=== PATIENT | female | born 1985 | race Two or more races ===

== ENCOUNTER 2024-05-04 16:13 | Outpatient (AMB) | payer BC, SELFPAY ==
[2024-05-04 16:23] VITALS: BP 122/83; PULSE 94; RESP 17; TEMP 36.4; O2SAT 97; BMI 43.9
--- NOTE | 2024-05-04 16:23 | PD.RESCLINIC ---
Vital Signs 05/04/24 16:23 Height 1.57 m Height Method Stated Weight 108.976 kg Weight Measurement Method Standing Scale BMI 43.9 BP 122/83 Blood Pressure Source Automatic Cuff Blood Pressure Location Left Upper Arm Position Sitting Respiration 17 Pulse 94 Pulse Source Monitor Temp 97.6 F Temp Source Temporal Artery Scan Pulse Oximetry (%) 97 Oxygen Delivery Method Room Air Allergies/Meds Allergies & Medications Allergies No Known Allergies Allergy (Verified 05/04/24 16:24) Medication Reconciliation No Known Home Medications 05/04/24 [History Confirmed 05/04/24] MA Intake Visit Data Collection New Patient or Established: Established Patient (seen at [facility] within 3 years) Seen by Clinical Staff ONLY (RN/MA): No Pain Present Currently: No Pain Scale Used: Khoury-Koo/Numerical Customer Service Professional Required: No PCP or OBGYN visit in last 3 months: No Hx Now: No Do You Feel Safe at Home: Yes Authorities Contacted: N/A Smoking Status Smoking Status: Never smoker Are you interested in quitting?: No Would you like additional Smoking Cessation Counseling?: No Immunization / Flu Flu Vaccine in the Last 12 Months: No Flu Vaccine Exclusion Criteria: No Exclusion Criteria Past Medical History Social History SMOKING STATUS: Smoking status: Never smoker Patient Portal Questionaires Social History Tobacco History Smoking Status: Never smoker Domestic Abuse History Do You Feel Safe at Home: Yes Review of Systems Report any current symptoms Only answer those that you have currently: Past Medical History Past Medical History Have you ever been diagnosed with any of the following: History of Present Illness HPI Narrative This is 39 yo F that presented to the clinic for weight management. Patient is a mother of 3. No significant past medical history. Patient had gestational diabetes in one of the pregnancies. Patient has tried diet and exercise without improvement in her weight loss goals. Denies any chest pain, SOB, palpitations, N/V/D. Objective/Exam Narrative Physical exam: Constitutional: AOx3, able to speak full sentences HEENT: NC/AT, PERRLA, oral mucosa moist, neck supple CVS: RRR, S1-S2 present, no murmurs RESP: CTAB GI: non distended, non tender to palpation, NBS MSK: full ROM, no peripheral edema, peripheral pulses present Skin: warm and dry, no rashes Neuro: drapery hanger II-XII grossly intact. Sensation grossly intact. Assessment & Plan Diagnosis / Problem List (1) Obesity: Status: Acute Qualifiers: Obesity type: unspecified obesity type Obesity classification: unspecified obesity classification Serious obesity comorbidity presence: unspecified whether serious comorbidity present Qualified Code(s): E66.9 - Obesity, unspecified Assessment & Plan: Patient has had difficulty losing weight with diet and exercise. Plan: -Labs -Make a exercise, diet plan with patient -we will evaluate for GLP-1a after labs (2) Morbid obesity with BMI of 40.0-44.9, adult: Status: Acute Plan: as above Office Procedures [facility] Level of Care Nursing/Assessment Patient Status: Established Patient Nursing Assessment/Reassessment: Medication Reconciliation, Update PMH in EMR and Vital Signs Coordination of Care: Complex Care and Chronic Disease 1-5, Consent,records obtained, informed consent, Education Simp Pt/Fam, Lab and Imaging orders and Staff clarify orders Established Patient Charge Established Patient Point Assignment: 100 Established Patient Point Charge: Level 3 (80-115)
== END 2024-05-04 16:39 | disposition home or self-care (01) ==
PROVIDERS: PCP Student in an Organized Health Care Education/Training Program; Referring Provider Student in an Organized Health Care Education/Training Program; Supervising Provider Internal Medicine; Visit Provider Student in an Organized Health Care Education/Training Program
DX: E66.01 Morbid (severe) obesity due to excess calories (principal); Z68.41 Body mass index [BMI] 40.0-44.9, adult
CPT/HCPCS: 99213; G0463

== ENCOUNTER → 2024-05-11 | Outpatient (CLI) | payer BC, SELFPAY ==
[2024-05-11 09:35] LABS: Basophils % (Auto) 0 % (0-2.5); Eosinophils # (Auto) 0.1 Thou/mm3 (0.0-0.5); Eosinophils % (Auto) 1 % (0-10); Hematocrit 40.4 % (36.0-46.0); Hemoglobin 13.9 g/dL (12.0-16.0); Immature Granulocytes % (Auto) 0 % (0-0); Immature Granulocytes Auto 0.02 Thou/mm3 (0.00-0.00); Lymphocytes # (Auto) 2.5 Thou/mm3 (1.0-4.8); Lymphocytes % (Auto) 30 % (10-50); Mean Corpuscular HGB Conc 34.4 g/dl (31.0-37.0); Mean Corpuscular Hemoglobin 29.7 pg (25.0-35.0); Mean Corpuscular Volume 86 fL (80-100); Monocytes # (Auto) 0.4 Thou/mm3 (0.0-0.8); Monocytes % (Auto) 5 % (0-12); Neutrophils # (Auto) 5.2 Thou/mm3 (1.8-7.7); Neutrophils % (Auto) 63 % (37-80); Nucleated Red Blood Cell % 0 /100 WBC (0); Platelet Count 260 Thou/mm3 (140-440); RDW Standard Deviation 39.8 fL (36.4-46.3); Red Blood Count 4.68 Miln/mm3 (4.00-5.20); White Blood Count 8.3 Thou/mm3 (3.6-11.0)
[2024-05-11 09:42] LABS: Glucose Estimated Average 103 mg/dL (80-131); Hemoglobin A1C 5.2 % Hgb (4.8-6.0)
[2024-05-11 09:48] LABS: Vitamin D 25 Hydroxy Total 12.3 ng/mL (7.3-40.2)
[2024-05-11 09:53] LABS: Alanine Aminotransferase 58 U/L (10-49); Albumin, Serum 4.4 gm/dL (3.5-5.0); Albumin/Globulin Ratio 1.7 (1.2-2.2); Alkaline Phosphatase 60 U/L (46-116); Anion Gap 9 (7-16); Aspartate Amino Transferase 48 U/L (0-34); BUN/Creatinine Ratio 16 Ratio (12-20); Bilirubin,Total 0.5 mg/dL (0.3-1.2); Blood Urea Nitrogen 11 mg/dL (9-23); Calcium 9.3 mg/dL (8.3-10.6); Calcium (Corrected) 9.3 mg/dL (8.5-10.1); Carbon Dioxide 27.2 mMol/L (20.0-31.0); Cardiac Risk Estimate 3.9 RATIO (3.7-5.6); Chloride 101 mMol/L (98-107); Cholesterol 187 mg/dL (132-200); Creatinine (Component) 0.7 mg/dL (0.6-1.3); Free T4 (Free Thyroxine) 1.16 ng/dL (0.89-1.76); Globulin 2.6 gm/dL (2.3-3.5); Glucose 84 mg/dL (74-106); HDL Cholesterol 48 mg/dL (40-60); LDL Cholesterol,Calculated 110 mg/dL (0-130); Osmolality,Calculated 272 (275-295); Potassium 4.4 mMol/L (3.4-5.1); Sodium 137 mMol/L (136-145); Thyroid Stimulating Hormone 0.94 uIU/mL (0.55-4.78); Triglycerides 145 mg/dL (30-150); eGFR > 60 See Note
== END | disposition home or self-care (01) ==
PROVIDERS: PCP Student in an Organized Health Care Education/Training Program; Referring Provider Student in an Organized Health Care Education/Training Program; Visit Provider Student in an Organized Health Care Education/Training Program
DX: Z00.00 Encounter for general adult medical examination without abnormal findings (principal)
CPT/HCPCS: 36415; 80053; 80061; 82306; 83036; 84439; 84443; 85025

== ENCOUNTER 2024-05-30 11:20 | Outpatient (AMB) | payer BC, SELFPAY ==
[2024-05-30 11:25] VITALS: BP 125/81; PULSE 79; RESP 16; TEMP 36.8; O2SAT 98; BMI 43.9
--- NOTE | 2024-05-30 11:25 | GYNCLNT_ITS ---
Vital Signs 05/30/24 11:25 Height 1.57 m Height Method Stated Weight 108.182 kg Weight Measurement Method Standing Scale BMI 43.9 BP 125/81 Blood Pressure Source Automatic Cuff Blood Pressure Location Left Upper Arm Position Sitting Respiration 16 Pulse 79 Pulse Source Monitor Temp 98.2 F Temp Source Oral Pulse Oximetry (%) 98 Oxygen Delivery Method Room Air Allergies/Home Meds Allergies & Medications Allergies No Known Allergies Allergy (Verified 05/30/24 11:28) Medication Reconciliation tirzepatide (weight loss) 2.5 mg/0.5 mL subcutaneous pen injector (Zepbound) 2.5 mg (0.5 mL) subcut QWEEK #2 mL 06/01/24 [Rx] Intake Visit Data Collection New Patient or Established: Established Patient (seen at [facility] within 3 years) Reason for Visit:: Irregular cycles Seen by Clinical Staff ONLY (RN/MA): No Science Editor Required: No Do You Feel Safe at Home: Yes Authorities Contacted: N/A PCP or OBGYN visit in last 3 months: Yes Date of Last PCP or OBGYN visit: 05/11/24 Hx Now: No Are you currently on any form of Control: No Last menstrual period: 05/12/24 Pain Present Currently: No Pain Scale Used: Khoury-Koo/Numerical Pain scale:: 0 Smoking Status Smoking Status: Never smoker Rope Tier history Rope Tier History Menstrual regularity: regular Flow: normal Monthly: Yes Age at menarche: 14 Currently sexually active: Yes Questionnaires Covid-19 Vaccine Questionnaire Has patient been vacinated for Covid-19 Have you been vacinated for Covid-19: Yes PHQ-9 PHQ-2 Over the last 2 weeks, how often have you been bothered by any of the following problems? 1. Little interest or pleasure in doing things: not at all 2. Feeling down, depressed, or hopeless: not at all Total score: 0 PHQ-9 3. Trouble falling or staying asleep, or sleeping too much: Not at all 4. Feeling tired or having little energy: Not at all 5. Poor appetite or overeating: Not at all 6. Feeling bad about yourself - or that you are a failure or have let yourself or your family down: Not at all 7. Trouble concentrating on things, such as reading the newspaper or watching television: Not at all 8. Moving or speaking so slowly that other people could have noticed? - Or the opposite - being so fidgety or restless that you have been moving around a lot more than usual: not at all 9. Thoughts that you would be better off or of hurting yourself in some way: Not at all Total score: 0 Source: Developed by Drs. Apolinar Pressley, Kalyn Barron, Srinath Chin and colleagues, with an educational alex from [employer]. Depression screen completed yes Social History Living Situation History Marital Status: Lives With: Family Housing: House Tobacco History Smoking Status: Never smoker Alcohol History Alcohol Intake: Current Alcohol Intake Frequency: holidays/special occasions only Domestic Abuse History Do You Feel Safe at Home: Yes Past Medical History Past Medical History Have you ever been diagnosed with any of the following: History of Present Illness HPI Narrative Patient presents to evaluate for possible polycystic ovary syndrome (PCOS). She reports experiencing irregular menstrual cycles recently, specifically noting that she has been skipping months. Previously, her periods were occurring monthly. The patient denies a history of using control. She mentions having three children, aged 16, 6, and 3 years old, conceived without contraception. The patient also indicates that she has recently undergone testing for diabetes, thyroid function, and lipid levels. Review of Systems Review of Systems Systems Reviewed: All systems reviewed, normal except as documented Exam General Limitations: no limitations General Appearance: alert, in no apparent distress, comfortable, cooperative, healthy appearing, well developed and well groomed Head Head exam: atraumatic, normocephalic and normal inspection Neck Neck exam: Present normal inspection, full ROM and trachea midline Chest Chest inspection: Present normal inspection and symmetric chest wall rise Abdominal Abdominal exam: Present soft and normal bowel sounds Extremities Extremities exam: Present normal inspection and full ROM Back Back exam: Present normal inspection and full ROM Psych Psychiatric exam: Present normal affect and normal mood Skin Skin exam: Present warm, dry, intact and normal color Assessment & Plan Diagnosis / Problem List (1) Anovulatory (dysfunctional uterine) bleeding: Status: Acute (2) PCOS (polycystic ovarian syndrome): Status: Acute Plan: Suspected Polycystic Ovary Syndrome (PCOS) Patient presents with concerns about possible PCOS. She reports irregular menstrual cycles, specifically skipping months. The patient has a history of thr ee pregnancies with children aged 16, 6, and 3 years old. She denies use of control. Recent laboratory tests for diabetes, thyroid function, and lipids were performed this month, but results are not available in the current system. A comprehensive evaluation including hormonal testing and ultrasound is necessary for PCOS diagnosis. - Order hormonal laboratory tests for PCOS evaluation - Schedule pelvic ultrasound - Review recent laboratory results (diabetes, thyroid, lipids) once available - Patient to complete laboratory tests at [facility] - Ultrasound to be performed at current facility (3) Morbid obesity with BMI of 40.0-44.9, adult: Status: Acute Additional Assessment Medical Decision Making Telma Torres is a female patient with three children presenting to evaluate for possible polycystic ovary syndrome (PCOS). The patient reports irregular menstrual cycles, specifically skipping months, which is a moreno symptom of PCOS. The clinician's decision-making process involves a comprehensive approach to diagnosing PCOS, including laboratory tests for hormonal imbalances, an ultrasound to visualize ovarian morphology, and consideration of the patient's menstrual irregularities. Recent diabetes and thyroid screenings were noted, but results were not available during the encounter. The combination of irregular periods, abnormal hormones, and ultrasound findings is recognized as necessary for a PCOS diagnosis, demonstrating the clinician's adherence to diagnostic criteria. The patient's reproductive history, including three children spaced several years apart without contraception use, is considered in the clinical picture. While PCOS is the primary suspected diagnosis, the clinician's approach allows for ruling out other potential causes of menstrual irregularities, such as thyroid disorders or diabetes, which have already been screened for recently. Preventive Medicine: Patient Counseling: Sexual Health, Contraception, and Family Planning Your sexual and reproductive health is important, and there are several steps you can take to protect yourself and make informed decisions. Safe Sex and STD Prevention: ? Condom Use: Consistent use of condoms during vaginal, anal, and oral sex reduces the risk of sexually transmitted diseases (STDs), including HIV. ? Regular Testing: Routine STD testing is important, especially if you or your partner have multiple partners. Early detection helps prevent complications. ? Open Communication: Discuss your sexual health and testing history with your partner(s) to make safer choices together. Contraceptive Options: ? Barrier Methods: Condoms (male and female) provide protection against both and STDs. ? Hormonal Methods: control pills, patches, vaginal rings, injections, and implants prevent when used consistently and correctly. ? Long-Acting Reversible Contraception (LARC): IUDs (hormonal and non-hormon al) and implants provide long-term, highly effective protection. ? Permanent Contraception: Options like tubal ligation or vasectomy are available for those who do not wish to have more children. Emergency Contraception (EC): ? Emergency contraception (e.g., Plan B or Yuni) can be used after unprotected sex or contraceptive failure and is most effective when taken within 72 hours (up to 5 days for some options). ? EC does not protect against STDs, so follow up with testing if exposure is a concern. Family Planning and Pre- Health: ? If you are planning to become , begin taking folic acid 1 mg daily to reduce the risk of neural tube defects. ? Avoid teratogenic drugs (medications that can harm a developing baby) and discuss any prescription medications with your healthcare provider before . ? It is recommended to space pregnancies at least 18 months apart to support your health and reduce -related risks. Additional Plan Follow Up: 4 Weeks Office Procedures OB Clinic LOC & Office Proc's Nursing/Assessment Patient Status: Established Patient OB Clinic Nursing Assessment: BP Monitoring, Medication Reconciliation, Update PMH in EMR and Vital Signs OB Clinic Coordination of Care: Consent,records obtained, informed consent, Education Simp Pt/Fam, Lab and Imaging orders and Staff clarify orders Established Patient Charge Established Patient Point Assignment: 90 Established Patient Point Charge: EP Level 3 (80-115)
== END 2024-05-30 11:23 | disposition home or self-care (01) ==
LOC: HODSOBC 11:20
PROVIDERS: PCP Obstetrics & Gynecology; Referring Provider Obstetrics & Gynecology; Supervising Provider Obstetrics & Gynecology; Visit Provider Obstetrics & Gynecology
DX: N93.8 Other specified abnormal uterine and vaginal bleeding (principal); E28.2 Polycystic ovarian syndrome
CPT/HCPCS: 99213; G0463

== ENCOUNTER → 2024-06-06 | Outpatient (CLI) | payer BC, SELFPAY ==
--- NOTE | 2024-06-06 07:15 | XR_ITS ---
Examination: Pelvic ultrasound, transabdominal, complete Technique: Transabdominal ultrasound of the pelvis performed using grayscale imaging Date and time of exam: June 06, 2024 at 0721 hrs. Indications: Diagnosis polycystic ovarian syndrome Findings: Uterus 13.4 cm endometrial stripe 0.6 cm, no discrete uterine mass, no intrauterine gestation Right ovary 6.1 cm arterial flow, right ovarian simple cyst 4.2 x 3.4 x 4.0 cm Left ovary 3.4 cm arterial flow, 2.2 x 1.7 x 2.5 cm simple cyst Impression: Bilateral ovarian cysts as above
== END | disposition home or self-care (01) ==
PROVIDERS: Referring Provider Obstetrics & Gynecology; Visit Provider Obstetrics & Gynecology
DX: N83.292 Other ovarian cyst, left side (principal); N83.291 Other ovarian cyst, right side
CPT/HCPCS: 76856

== ENCOUNTER → 2024-06-08 | Outpatient (CLI) | payer BC, SELFPAY ==
[2024-06-08 08:14] LABS: Misc Send Out* See Sep Rpt
[2024-06-08 08:48] LABS: Beta HCG,Quantitative < 1 mIU/mL (<5.0)
[2024-06-08 08:52] LABS: Follicle Stimulating Hormone 1.17 mIU/mL (See Note)
== END | disposition home or self-care (01) ==
PROVIDERS: PCP Obstetrics & Gynecology; Referring Provider Obstetrics & Gynecology; Visit Provider Obstetrics & Gynecology
DX: E28.2 Polycystic ovarian syndrome (principal); N97.0 Female infertility associated with anovulation
CPT/HCPCS: 36415; 82627; 82670; 83001; 83002; 83498; 84146; 84270; 84402; 84403; 84702

== ENCOUNTER 2024-11-07 15:51 | Outpatient (AMB) | payer BC, SELFPAY ==
[2024-11-07 16:02] VITALS: BP 119/82; PULSE 97; RESP 17; TEMP 36.7; O2SAT 98; BMI 43.4
--- NOTE | 2024-11-07 16:02 | AMB.GYNCLNOT ---
Vital Signs 11/07/24 16:02 Height 1.57 m Height Method Measured Weight 107.218 kg Weight Measurement Method Standing Scale BMI 43.4 BP 119/82 Blood Pressure Source Automatic Cuff Blood Pressure Location Right Upper Arm Position Sitting Respiration 17 Pulse 97 Pulse Source Monitor Temp 98.0 F Temp Source Temporal Artery Scan Pulse Oximetry (%) 98 Oxygen Delivery Method Room Air Allergies/Home Meds Allergies & Medications Allergies No Known Allergies Allergy (Verified 11/07/24 16:03) Intake Visit Data Collection New Patient or Established: Established Patient (seen at [facility] within 3 years) Reason for Visit:: IRREGULAR MENSES Consent obtained for Telemed Visit: No Seen by Clinical Staff ONLY (RN/MA): No Campus Recruiting Coordinator Required: No Do You Feel Safe at Home: Yes Authorities Contacted: N/A PCP or OBGYN visit in last 3 months: Yes Date of Last PCP or OBGYN visit: 05/30/24 Hx Now: No Are you currently on any form of Control: No Last menstrual period: 10/22/24 Pain Present Currently: No Pain Scale Used: Khoury-Koo/Numerical Pain scale:: 0 Smoking Status Smoking Status: Never smoker Cover Creaser history Cover Creaser History Menstrual regularity: regular Flow: normal Monthly: Yes How many days does period last: 7 Age at menarche: 14 Menopausal: No Currently sexually active: Yes Questionnaires Covid-19 Vaccine Questionnaire Has patient been vacinated for Covid-19 Have you been vacinated for Covid-19: Yes PHQ-9 PHQ-2 Over the last 2 weeks, how often have you been bothered by any of the following problems? 1. Little interest or pleasure in doing things: not at all PHQ-9 8. Moving or speaking so slowly that other people could have noticed? - Or the opposite - being so fidgety or restless that you have been moving around a lot more than usual: not at all Total score: 0 Source: Developed by Drs. Apolinar Pressley, Kalyn Barron, Srinath Chin and colleagues, with an educational alex from [employer]. Social History Living Situation History Lives With: Family Housing: House Tobacco History Smoking Status: Never smoker Alcohol History Alcohol Intake: Current Alcohol Intake Frequency: holidays/special occasions only Domestic Abuse History Do You Feel Safe at Home: Yes Office Procedures OB Clinic LOC & Office Proc's Nursing/Assessment Patient Status: Established Patient OB Clinic Nursing Assessment: Medication Reconciliation, Update PMH in EMR and Vital Signs OB Clinic Coordination of Care: Complex Care and Chronic Disease 1-5, Consent,records obtained, informed consent, Education Simp Pt/Fam and Staff clarify orders Established Patient Charge Established Patient Point Assignment: 85 Established Patient Point Charge: EP Level 3 (80-115)
== END 2024-11-07 17:05 | disposition home or self-care (01) ==
LOC: HODSOBC 15:51
PROVIDERS: Supervising Provider Obstetrics & Gynecology; Visit Provider Obstetrics & Gynecology
DX: N92.6 Irregular menstruation, unspecified (principal)
CPT/HCPCS: 99213; G0463